=== PATIENT | female | born 1950 | race Caucasian/White ===

== ENCOUNTER 2023-09-29 06:29 | Emergency (ER) | payer BC ==
[~2023-09-29] VITALS: Ht 172.7 cm; Wt 116.4 kg
[2023-09-29 09:44] LABS: BASOPHILS % (AUTO) 0.3 % (0-1); EOSINOPHILS % (AUTO) 0.6 % (0-6); HEMATOCRIT 37.6 % (35.0-45.0); HEMOGLOBIN 12.9 g/dl (12.0-16.0); LYMPHOCYTES % (AUTO) 13.6 % (21-51); MEAN CORPUSCULAR HEMOGLOBIN 27.2 PG (27.0-31.0); MEAN CORPUSCULAR HGB CONC 34.4 g/dL (33.0-36.5); MEAN CORPUSCULAR VOLUME 78.8 FL (78-98); MEAN PLATELET VOLUME 7.7 FL (7.4-10.4); MONOCYTES # (AUTO) 0.3 X10'3 (0-0.9); MONOCYTES % (AUTO) 3.4 % (2-12); NEUTROPHILS % (AUTO) 82.1 % (42-75); PLATELET COUNT 315 X10'3 (140-440); RED BLOOD COUNT 4.76 X10'6 (4.20-5.60); RED CELL DISTRIBUTION WIDTH 14.3 % (11.5-14.5); WHITE BLOOD COUNT 7.3 X10'3 (4.5-11.0)
[2023-09-29 09:45] VITALS: TEMP 96.6
[2023-09-29 10:00] LABS: ALBUMIN 3.9 G/DL (3.4-5.0); ANION GAP 10 (8-16); BLOOD UREA NITROGEN 17 MG/DL (7-18); BUN/CREATININE RATIO 23.6 (10.0-20.0); CALCIUM 8.5 MG/DL (8.5-10.1); CHLORIDE 105 MMOL/L (99-107); CREATININE 0.72 MG/DL (0.40-0.90); ETHANOL < 10 MG/DL (<10); GLUCOSE 111 MG/DL (70-104); POTASSIUM 4.4 MMOL/L (3.5-5.1); SODIUM 142 MMOL/L (135-145); TOTAL CARBON DIOXIDE 27.5 MMOL/L (24-32); eCRCL 71 ML/MIN; eGFR 80 ML/MIN
[2023-09-29 10:12] LABS: BILIRUBIN,URINE NEGATIVE (Neg); CLARITY,URINE CLOUDY (Clear); COLOR,URINE YELLOW (Yellow); GLUCOSE, URINE NEGATIVE (Neg); KETONES,URINE NEGATIVE (Neg); LEUKOCYTE ESTERASE ,URINE TRACE (Neg); NITRITES, URINE NEGATIVE (Neg); OCCULT BLOOD,URINE NEGATIVE (Neg); PROTEIN,URINE NEGATIVE (Neg); UROBILINOGEN,URINE 0.2 E.U/dL (0.2-1.0)
[2023-09-29 10:16] LABS: UA COLLECTION TYPE CLN CATCH MIDSTREAM
[2023-09-29 10:17] LABS: MUCUS STRANDS MODERATE /LPF (Neg); SQUAMOUS EPITHELIAL CELL,UR MODERATE /LPF (FEW)
[2023-09-29 10:18] LABS: BACTERIA,URINE 1+ /HPF (Neg); CAL OXALATE CRYSTALS 4+ /HPF (NEGATIVE); RBC,URINE 0-2 /HPF (0-2); STARCH,URINE MODERATE /HPF (NEGATIVE); WBC,URINE 0-4 /HPF (0-4)
[2023-09-29 10:39] LABS: ALANINE AMINOTRANSFERASE 24 U/L (12-78); ALBUMIN/GLOBULIN RATIO 1.1 (1.1-1.5); ALKALINE PHOSPHATASE 92 IU/L (46-116); ASPARTATE AMINO TRANSFERASE 10 U/L (10-37); BILIRUBIN,TOTAL 0.5 MG/DL (0.1-1.0); LIPASE 31 U/L (16-77); TOTAL PROTEIN 7.3 G/DL (6.4-8.2)
[2023-09-29 11:18] VITALS: BP 160/78; PULSE 66; RESP 16; O2SAT 98
[2023-09-29] MEDS: metoclopramide 5 mg/ml inj IV ONE (11:21)
[2023-09-29] MEDS: diphenhydrAMINE 50 mg/ml inj IM ONE (11:21)
[2023-09-29 12:32] LABS: URINE AMPHETAMINE SCREEN NEGATIVE (Neg); URINE BARBITUATE SCREEN NEGATIVE (Neg); URINE BENZODIAZEPINES SCREEN NEGATIVE (Neg); URINE CANNABINOID SCREEN POSITIVE (Neg); URINE COCAINE SCREEN NEGATIVE (Neg); URINE METHADONE SCREEN NEGATIVE (Neg); URINE OPIATE SCREEN NEGATIVE (Neg); URINE PHENCYCLIDINE SCREEN NEGATIVE (Neg)
== END 2023-09-29 11:50 | disposition home or self-care (01) ==
LOC: ER 06:30
DX: R06.00 Dyspnea, unspecified (principal); R42 Dizziness and giddiness; K21.9 Gastro-esophageal reflux disease without esophagitis
CPT/HCPCS: 36415; 71045; 80053; 80305; 80320; 81001; 82140; 82948; 83690; 84145; 84484; 85025; 87088; 93005; 96372; 96374; 99285; J1200; J2765

== ENCOUNTER 2024-02-02 05:51 | Emergency (ER) | payer BC ==
[~2024-02-02] VITALS: Ht 172.7 cm; Wt 113.0 kg
[2024-02-02 06:00] VITALS: TEMP 97.6
[2024-02-02 06:30] LABS: BASOPHILS % (AUTO) 0.6 % (0-1); EOSINOPHILS # (AUTO) 0.1 X10'3 (0-0.9); EOSINOPHILS % (AUTO) 1.9 % (0-6); HEMATOCRIT 36.9 % (35.0-45.0); HEMOGLOBIN 12.7 g/dl (12.0-16.0); LYMPHOCYTES # (AUTO) 1.7 X10'3 (1.1-4.8); LYMPHOCYTES % (AUTO) 24.6 % (21-51); MEAN CORPUSCULAR HEMOGLOBIN 27.5 PG (27.0-31.0); MEAN CORPUSCULAR HGB CONC 34.4 g/dL (33.0-36.5); MEAN CORPUSCULAR VOLUME 79.9 FL (78-98); MEAN PLATELET VOLUME 8.2 FL (7.4-10.4); MONOCYTES # (AUTO) 0.5 X10'3 (0-0.9); MONOCYTES % (AUTO) 7.1 % (2-12); NEUTROPHILS # (AUTO) 4.6 X10'3 (1.8-7.7); NEUTROPHILS % (AUTO) 65.8 % (42-75); PLATELET COUNT 284 X10'3 (140-440); RED BLOOD COUNT 4.62 X10'6 (4.20-5.60); RED CELL DISTRIBUTION WIDTH 14.3 % (11.5-14.5)
[2024-02-02 06:39] LABS: ALANINE AMINOTRANSFERASE 39 U/L (12-78); ALBUMIN 3.5 G/DL (3.4-5.0); ALBUMIN/GLOBULIN RATIO 1.1 (1.1-1.5); ALKALINE PHOSPHATASE 96 IU/L (46-116); ANION GAP 12 (8-16); ASPARTATE AMINO TRANSFERASE 22 U/L (10-37); BILIRUBIN,TOTAL 0.6 MG/DL (0.1-1.0); BLOOD UREA NITROGEN 16 MG/DL (7-18); BUN/CREATININE RATIO 21.3 (10.0-20.0); CALCIUM 8.4 MG/DL (8.5-10.1); CHLORIDE 109 MMOL/L (99-107); CREATININE 0.75 MG/DL (0.40-0.90); GLUCOSE 109 MG/DL (70-104); SODIUM 144 MMOL/L (135-145); TOTAL CARBON DIOXIDE 23.5 MMOL/L (24-32); TOTAL PROTEIN 6.6 G/DL (6.4-8.2); eCRCL 68 ML/MIN; eGFR 76 ML/MIN
[2024-02-02 06:45] LABS: PRO BRAIN NATRIURETIC PEPTIDE 84 PG/ML (0-125)
[2024-02-02 06:49] LABS: POTASSIUM 3.9 MMOL/L (3.5-5.1)
[2024-02-02 07:06] LABS: BILIRUBIN,URINE NEGATIVE (Neg); CLARITY,URINE CLEAR (Clear); COLOR,URINE YELLOW (Yellow); GLUCOSE, URINE NEGATIVE (Neg); KETONES,URINE NEGATIVE (Neg); LEUKOCYTE ESTERASE ,URINE TRACE (Neg); NITRITES, URINE NEGATIVE (Neg); OCCULT BLOOD,URINE NEGATIVE (Neg); PH,URINE 8.5 (4.8-8.0); PROTEIN,URINE NEGATIVE (Neg)
[2024-02-02] MEDS: meclizine 12.5mg tablet PO ONE ×2 (07:15→08:23)
[2024-02-02 07:19] LABS: UA COLLECTION TYPE CLN CATCH MIDSTREAM
[2024-02-02 07:21] LABS: BACTERIA,URINE FEW /HPF (Neg); MUCUS STRANDS NONE SEEN /LPF (Neg); RBC,URINE NONE SEEN /HPF (0-2); SQUAMOUS EPITHELIAL CELL,UR FEW /LPF (FEW); WBC,URINE 0-4 /HPF (0-4)
[2024-02-02] MEDS ORDERED: MECL-302 PO (08:16)
[2024-02-02 08:29] VITALS: BP 123/72; PULSE 78; RESP 78; O2SAT 99
== END 2024-02-02 08:32 | disposition home or self-care (01) ==
LOC: ER 05:52
DX: R42 Dizziness and giddiness (principal); R07.89 Other chest pain; R12 Heartburn; K21.9 Gastro-esophageal reflux disease without esophagitis; Z79.899 Other long term (current) drug therapy; Z90.710 Acquired absence of both cervix and uterus; Z87.891 Personal history of nicotine dependence
CPT/HCPCS: 36415; 71045; 80053; 81001; 82948; 83880; 84484; 85025; 87088; 93005; 99285; J8597

== ENCOUNTER 2024-08-10 00:10 | Inpatient (IN) | payer BC ==
[~2024-08-10] VITALS: Ht 167.6 cm; Wt 107.0 kg
[2024-08-10] VITALS (15 sets, daily range): BP systolic 108–146; BP diastolic 45–102; PULSE 65–111; RESP 13–20; TEMP 97.1–98.2; O2SAT 96–99
[~2024-08-10 00:10] MED LIST: MECL-302 PO
[2024-08-10] MEDS: diltiazem 5mg/ml 5ml inj. IV ONE (00:45)
[2024-08-10 00:49] LABS: BASOPHILS % (AUTO) 0.5 % (0-1); EOSINOPHILS # (AUTO) 0.2 X10'3 (0-0.9); HEMATOCRIT 40.3 % (35.0-45.0); HEMOGLOBIN 13.9 g/dl (12.0-16.0); LYMPHOCYTES # (AUTO) 2.4 X10'3 (1.1-4.8); MEAN CORPUSCULAR HEMOGLOBIN 27.4 PG (27.0-31.0); MEAN CORPUSCULAR HGB CONC 34.5 g/dL (33.0-36.5); MEAN CORPUSCULAR VOLUME 79.4 FL (78-98); MEAN PLATELET VOLUME 7.7 FL (7.4-10.4); MONOCYTES # (AUTO) 0.6 X10'3 (0-0.9); MONOCYTES % (AUTO) 7.8 % (2-12); NEUTROPHILS # (AUTO) 4.4 X10'3 (1.8-7.7); NEUTROPHILS % (AUTO) 57.7 % (42-75); PLATELET COUNT 312 X10'3 (140-440); RED BLOOD COUNT 5.07 X10'6 (4.20-5.60); RED CELL DISTRIBUTION WIDTH 13.6 % (11.5-14.5); WHITE BLOOD COUNT 7.6 X10'3 (4.5-11.0)
[2024-08-10] MEDS: normal saline 1000ml 1,000 ML IV ONE (00:49)
[2024-08-10] MEDS: magnesium sulf-water 2g/50mL 50 ML IV ONE ×2 (00:50→02:02)
[2024-08-10 00:56] LABS: ALANINE AMINOTRANSFERASE 28 U/L (12-78); ALKALINE PHOSPHATASE 117 IU/L (46-116); ANION GAP 9 (8-16); ASPARTATE AMINO TRANSFERASE 15 U/L (10-37); BILIRUBIN,TOTAL 0.5 MG/DL (0.1-1.0); BLOOD UREA NITROGEN 18 MG/DL (7-18); BUN/CREATININE RATIO 27.3 (10.0-20.0); CALCIUM 8.6 MG/DL (8.5-10.1); CHLORIDE 108 MMOL/L (99-107); CREATININE 0.66 MG/DL (0.40-0.90); GLUCOSE 100 MG/DL (70-104); POTASSIUM 3.6 MMOL/L (3.5-5.1); SODIUM 143 MMOL/L (135-145); TOTAL CARBON DIOXIDE 25.6 MMOL/L (24-32); TOTAL PROTEIN 8.1 G/DL (6.4-8.2); eCRCL 78 ML/MIN; eGFR 88 ML/MIN
[2024-08-10 01:05] LABS: PRO BRAIN NATRIURETIC PEPTIDE 67 PG/ML (0-125)
[2024-08-10] MEDS: metoprolol tartrate 1mg/ml inj IV SCH (01:22)
[2024-08-10 01:27] LABS: BILIRUBIN,URINE NEGATIVE (Neg); CLARITY,URINE CLEAR (Clear); COLOR,URINE STRAW (Yellow); GLUCOSE, URINE NEGATIVE (Neg); KETONES,URINE NEGATIVE (Neg); LEUKOCYTE ESTERASE ,URINE SMALL (Neg); NITRITES, URINE NEGATIVE (Neg); OCCULT BLOOD,URINE TRACE-INTACT (Neg); PROTEIN,URINE NEGATIVE (Neg); UROBILINOGEN,URINE 0.2 E.U/dL (0.2-1.0)
[2024-08-10 01:40] LABS: SQUAMOUS EPITHELIAL CELL,UR FEW /LPF (FEW); UA COLLECTION TYPE URINAL
[2024-08-10 01:41] LABS: BACTERIA,URINE FEW /HPF (Neg); RBC,URINE 0-2 /HPF (0-2); TRANSITIONAL EPI CELLS,URINE FEW /HPF
[2024-08-10] MEDS ORDERED: ASPI-611 PO (04:11)
[2024-08-10] MEDS ORDERED: ATOR40TA72 PO (04:11)
[2024-08-10] MEDS ORDERED: LEVO137T19 PO (04:11)
[2024-08-10] MEDS ORDERED: acetaminophen 325mg tablet PO PRN (04:15)
[2024-08-10] MEDS ORDERED: potassium Cl 40MEQ/1/2NS 520ml 520 ML IV PRN (04:15)
[2024-08-10] MEDS ORDERED: potassium Cl 20 mEq SR tablet PO PRN ×2 (04:15)
[2024-08-10] MEDS ORDERED: magnesium sulf-water 4G/100mL 100 ML IV PRN (04:15)
[2024-08-10] MEDS ORDERED: magnesium Cl slow-release 64mg tablet PO PRN (04:15)
[2024-08-10] MEDS ORDERED: ondansetron/PF 4mg/2ml inj IV PRN (04:15)
[2024-08-10] MEDS ORDERED: magnesium sulf-water 2g/50mL 50 ML IV PRN (04:15)
[2024-08-10] MEDS: diltiazem-NS 100mg/100ml 100 ML IV SCH ×2 (04:16→07:55)
[2024-08-10] MEDS: apixaban 5mg tablet PO SCH (04:42)
[2024-08-10] MEDS: PERFLUTREN PROTEIN-A MICROSPHR (Optison) 0.22 MG/ML 3ML VIAL IV ONE (06:00)
[2024-08-10] MEDS: K and/or MAG REPLACEMENT MC SCH (07:38)
[2024-08-11] VITALS (7 sets, daily range): BP systolic 94–127; BP diastolic 49–104; PULSE 57–81; RESP 13–23; TEMP 97.4–97.9; O2SAT 97–100
[2024-08-11] MEDS: diltiazem 30mg tablet PO ONE (03:57)
[2024-08-11 06:34] LABS: BASOPHILS % (AUTO) 0.2 % (0-1); EOSINOPHILS # (AUTO) 0.1 X10'3 (0-0.9); EOSINOPHILS % (AUTO) 1.1 % (0-6); HEMATOCRIT 38.8 % (35.0-45.0); HEMOGLOBIN 12.9 g/dl (12.0-16.0); LYMPHOCYTES # (AUTO) 1.5 X10'3 (1.1-4.8); LYMPHOCYTES % (AUTO) 18.9 % (21-51); MEAN CORPUSCULAR HEMOGLOBIN 26.4 PG (27.0-31.0); MEAN CORPUSCULAR HGB CONC 33.2 g/dL (33.0-36.5); MEAN CORPUSCULAR VOLUME 79.5 FL (78-98); MONOCYTES # (AUTO) 0.6 X10'3 (0-0.9); MONOCYTES % (AUTO) 7.2 % (2-12); NEUTROPHILS # (AUTO) 5.8 X10'3 (1.8-7.7); NEUTROPHILS % (AUTO) 72.6 % (42-75); PLATELET COUNT 322 X10'3 (140-440); RED BLOOD COUNT 4.89 X10'6 (4.20-5.60); RED CELL DISTRIBUTION WIDTH 13.7 % (11.5-14.5)
[2024-08-11 06:40] LABS: ALBUMIN 3.5 G/DL (3.4-5.0); ANION GAP 10 (8-16); BLOOD UREA NITROGEN 20 MG/DL (7-18); BUN/CREATININE RATIO 27.8 (10.0-20.0); CALCIUM 8.5 MG/DL (8.5-10.1); CHLORIDE 110 MMOL/L (99-107); CREATININE 0.72 MG/DL (0.40-0.90); GLUCOSE 97 MG/DL (70-104); POTASSIUM 3.7 MMOL/L (3.5-5.1); SODIUM 147 MMOL/L (135-145); TOTAL CARBON DIOXIDE 26.7 MMOL/L (24-32); eCRCL 65 ML/MIN; eGFR 79 ML/MIN
[2024-08-11] MEDS: levoTHYROXINE 25mcg tablet PO SCH (07:42)
[2024-08-11] MEDS: atorvastatin 20mg tablet PO SCH (07:42)
[2024-08-11] MEDS: aspirin 81mg, enteric-coated 1 TAB TABLET.DR PO SCH (07:42)
[2024-08-11] MEDS: diltiazem 30mg tablet PO SCH (07:43)
[2024-08-11] MEDS: levoTHYROXINE 112mcg tablet PO SCH (07:43)
[2024-08-11] MEDS ORDERED: APIX5TAB3 PO (10:44)
[2024-08-11] MEDS ORDERED: DILT30TA2 PO (10:44)
[2024-08-16] MEDS ORDERED: DILT30TA2 PO (11:35)
== END 2024-08-11 14:20 | disposition home or self-care (01) | DRG 309 ==
LOC: ER 00:11 → ED HOLD 04:16 → PCU 3S 10:58
PROVIDERS: ADMIT Internal Medicine; ATTEND Internal Medicine
DX: I48.91 Unspecified atrial fibrillation (principal); E87.0 Hyperosmolality and hypernatremia; K21.9 Gastro-esophageal reflux disease without esophagitis; I10 Essential (primary) hypertension; E78.5 Hyperlipidemia, unspecified; E03.9 Hypothyroidism, unspecified; Z98.84 Bariatric surgery status; Z90.710 Acquired absence of both cervix and uterus
CPT/HCPCS: 36415; 71045; 80048; 80053; 81001; 83880; 84443; 84484; 85025; 87081; 87088; 93005; 93306; 96365; 96366; 96367; 96375; 96376; 99285; G0378; J3490; J7030